=== PATIENT | female | born 1990 | race Caucasian/White ===

== ENCOUNTER 2020-10-19 15:16 | Emergency (ER) | payer OTHER ==
[~2020-10-19 15:16] MED LIST: BACITRACIN15 GM TOP; CAMBIA50 MG PO; ILOTYCIN1 GM OD; ONDANSETRON ODT4 MG SL; OXYCODONE H5 MG/5 ML PO; PERCOCET 5-3251 EACH PO
[2020-10-19] MEDS ORDERED: PREDNISONE50 MG PO (16:16)
[2020-10-19] MEDS ORDERED: CYCLOBENZAPRINE10 MG PO (16:18)
== END 2020-10-19 20:56 | disposition home or self-care (01) ==
LOC: FER 15:16
DX: M54.41 Lumbago with sciatica, right side (principal); F17.210 Nicotine dependence, cigarettes, uncomplicated; Z88.0 Allergy status to penicillin; Z88.6 Allergy status to analgesic agent
CPT/HCPCS: 99283

== ENCOUNTER 2021-03-14 16:41 | Emergency (ER) | payer OTHER ==
[~2021-03-14 16:41] MED LIST changes: +CYCLOBENZAPRINE10 MG PO; +PREDNISONE50 MG PO
[2021-03-14 18:57] LABS: BASOPHIL 0.3 % (0-2); EOSINOPHIL 3.1 % (0-5); HCT 36.8 % (37.0-47.0); HGB 12.6 g/dl (12.5-16.0); LYMPHOCYTE 24.1 % (15-48); MCH 31.2 pg (25.0-31.0); MCHC 34.2 g/dL (32.0-36.0); MCV 91.1 fL (78.0-100.0); MONOCYTE 7.5 % (0-12); NEUTROPHIL 64.5 % (41-80); NRBC 0; PLT 249 K/uL (150-400); RBC 4.04 M/uL (4.20-5.40); RDW 12.6 % (11.5-14.0); WBC 11.7 K/uL (4.0-10.5)
[2021-03-14 19:19] LABS: BILIRUBIN - TOTAL 0.2 mg/dL (0.2-1.0); BUN/CREAT RATIO (CALC) 11.5 RATIO; CREATININE 0.52 mg/dL (0.51-0.95); GLOBULIN (CALCULATION) 3.8 g/dL; POTASSIUM 3.7 mmol/L (3.5-5.1); TOTAL PROTEIN 6.8 g/dL (6.4-8.2)
[2021-03-14 19:42] LABS: BILIRUBIN NEGATIVE (NEGATIVE); BLOOD NEGATIVE Ery/uL (NEGATIVE); CLARITY CLEAR (CLEAR); COLOR YELLOW (YELLOW); GLUCOSE (U) NORMAL (NORMAL); LEUKOCYTES NEGATIVE Leu/uL (NEGATIVE); NITRITE NEGATIVE (NEGATIVE); PROTEIN NEGATIVE (NEGATIVE); SPECIFIC GRAVITY 1.025 (1.001-1.030); UROBILINOGEN 0.2 mg/dL (0.2-1.0)
[2021-03-16 21:09] LABS: CHLAMYDIA TRACHOMATIS, NAA Negative (Negative); NEISSERIA GONORRHOEAE, NAA Negative (Negative)
== END 2021-03-14 21:46 | disposition home or self-care (01) ==
LOC: FER 16:41
PROVIDERS: Emergency Medicine
DX: O99.891 Other specified diseases and conditions complicating pregnancy (principal); R10.31 Right lower quadrant pain; O99.332 Smoking (tobacco) complicating pregnancy, second trimester; F17.210 Nicotine dependence, cigarettes, uncomplicated; Z3A.15 15 weeks gestation of pregnancy; Z87.59 Personal history of other complications of pregnancy, childbirth and the puerperium; Z88.6 Allergy status to analgesic agent; Z88.0 Allergy status to penicillin; Z98.890 Other specified postprocedural states; Z79.82 Long term (current) use of aspirin
CPT/HCPCS: 36415; 76805; 80053; 81003; 83690; 84702; 85025; 87210; 87491; 87591

== ENCOUNTER 2021-08-31 22:55 | Inpatient (IN) | payer OTHER ==
[~2021-08-31] VITALS: Ht 144.8 cm; Wt 99.3 kg
[2021-08-31 23:25] LABS: AMPHETAMINES NEGATIVE (NEGATIVE); BARBITURATES NEGATIVE (NEGATIVE); BILIRUBIN NEGATIVE (NEGATIVE); BLOOD TRACE-INTACT Ery/uL (NEGATIVE); CLARITY CLEAR (CLEAR); COLOR YELLOW (YELLOW); ECSTASY (MDMA) NEGATIVE (NEGATIVE); GLUCOSE (U) NORMAL (NORMAL); LEUKOCYTES 1+ Leu/uL (NEGATIVE); MARIJUANA (THC) NEGATIVE (NEGATIVE); METHADONE NEGATIVE (NEGATIVE); NITRITE NEGATIVE (NEGATIVE); OPIATES NEGATIVE (NEGATIVE); OXYCODONE NEGATIVE (NEGATIVE); PROTEIN NEGATIVE (NEGATIVE); UROBILINOGEN 0.2 mg/dL (0.2-1.0)
[2021-08-31 23:33] LABS: AMORPHOUS URATES CRYSTALS TRACE; BACTERIA 3+
[2021-09-01 01:51] LABS: INR 1.02 (0.9-1.2); PROTHROMBIN TIME 12.8 SECONDS (11.8-13.4); PTT 26.2 SECONDS (24.4-34.7)
[2021-09-01 02:39] LABS: BASOPHIL 0.4 % (0-2); EOSINOPHIL 2.5 % (0-5); HCT 35.5 % (37.0-47.0); HGB 11.9 g/dl (12.5-16.0); LYMPHOCYTE 25.4 % (15-48); MCH 30.4 pg (25.0-31.0); MCHC 33.5 g/dL (32.0-36.0); MCV 90.8 fL (78.0-100.0); MONOCYTE 8.3 % (0-12); MPV 11.1 fL (6.0-9.5); NEUTROPHIL 62.3 % (41-80); NRBC 0; PLT 312 K/uL (150-400); RBC 3.91 M/uL (4.20-5.40); RDW 13.4 % (11.5-14.0); WBC 16.2 K/uL (4.0-10.5)
[2021-09-01 02:44] LABS: CREATININE 0.5 mg/dL (0.51-0.95); POTASSIUM 3.5 mmol/L (3.5-5.1)
[2021-09-01 02:45] LABS: ALBUMIN 2.8 g/dL (3.4-5.0); BILIRUBIN - TOTAL 0.3 mg/dL (0.2-1.0); GLOBULIN (CALCULATION) 3.8 g/dL; TOTAL PROTEIN 6.6 g/dL (6.4-8.2)
[2021-09-01 16:07] LABS: BILIRUBIN NEGATIVE (NEGATIVE); BLOOD NEGATIVE Ery/uL (NEGATIVE); CLARITY CLEAR (CLEAR); COLOR YELLOW (YELLOW); GLUCOSE (U) NORMAL (NORMAL); LEUKOCYTES NEGATIVE Leu/uL (NEGATIVE); NITRITE NEGATIVE (NEGATIVE); PROTEIN NEGATIVE (NEGATIVE); pH 7.5 (5.0-9.0)
[2021-09-02 06:10] LABS: HCT 33.9 % (37.0-47.0); HGB 11.2 g/dl (12.5-16.0); MCH 30.4 pg (25.0-31.0); MCV 92.1 fL (78.0-100.0); MPV 10.4 fL (6.0-9.5); RBC 3.68 M/uL (4.20-5.40); RDW 13.6 % (11.5-14.0); WBC 15.6 K/uL (4.0-10.5)
== END 2021-09-03 16:20 | disposition home or self-care (01) | DRG 787 ==
LOC: FOB 22:55 → FOD 22:55 → FOB 09-01 00:36
PROVIDERS: ADMIT Specialist
PROC: 10D00Z1 Extraction of Products of Conception, Low, Open Approach (ICD-10-PCS; principal; 2021-09-01 14:00)
DX: O34.211 Maternal care for low transverse scar from previous cesarean delivery (principal); O99.12 Other diseases of the blood and blood-forming organs and certain disorders involving the immune mechanism complicating childbirth; D68.59 Other primary thrombophilia; Z20.822 Contact with and (suspected) exposure to COVID-19; Z37.0 Single live birth; Z3A.38 38 weeks gestation of pregnancy; O99.214 Obesity complicating childbirth; E66.01 Morbid (severe) obesity due to excess calories; O99.284 Endocrine, nutritional and metabolic diseases complicating childbirth; E28.2 Polycystic ovarian syndrome; O99.334 Smoking (tobacco) complicating childbirth; F17.200 Nicotine dependence, unspecified, uncomplicated
CPT/HCPCS: 36415; 80053; 80305; 81001; 81003; 85025; 85610; 85730; 86850; 86900; 86901; 87088; 90686; G0378; J0595; J1580; J1644; J1650; J1885; J2270; J2274; J2370; J2405; J2550; J7120; U0002